=== PATIENT | female | born 2000 | race African-American/Black ===

== ENCOUNTER 2021-05-06 15:19 | Emergency (ER) | payer OTHER, SELFPAY ==
[2021-05-06 15:23] VITALS: BP 109/65; PULSE 70; RESP 16; TEMP 36.7; O2SAT 100
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
[2021-05-06 16:50] LABS: Add Manual Diff / Slide Review NO; Basophils Absolute Auto 0 /uL (0-100); Basophils Percent Auto 0.5 % (0-2); Eosinophils Absolute Auto 0 /uL (0-450); Eosinophils Percent Auto 0.4 % (2-4); Hematocrit 42.4 % (36-46); Hemoglobin 14.1 g/dL (12.0-16.0); Lymphocytes Absolute Auto 2100 /uL (1100-4500); Lymphocytes Percent Auto 33.9 % (25-40); Mean Corpuscular HGB Conc 33.3 % (30-36); Mean Corpuscular Hemoglobin 29.5 PG (26-34); Mean Corpuscular Volume 88.4 fL (80-100); Monocytes Absolute Auto 400 /uL (0-900); Neutrophils Absolute Auto 3700 /uL (1500-7000); Neutrophils Percent Auto 58.2 % (50-75); Platelet Count 208 X10^3/uL (150-400); Red Cell Distribution Width 12.8 % (11.6-14.8); White Blood Cell Count 6.3 X10^3/uL (4.5-11.0)
[2021-05-06 16:57] LABS: Amorphous Sediment Urine 1+; Bacteria Urine None Seen; Culture Indicated Urine Cult Not Indicated; Mucus Urine 1+ (Negative); RBC Urine None Seen (0-5/HPF); Squamous Epithelial Cell Urine 1-5 /HPF (0-5/HPF); UR Morphine/Opiate cutoff 300 Negative (Negative); Ur Creatinine Normal (Normal); Ur Specific Gravity Normal (Normal); Urine Amphetamines Negative (Negative); Urine Barbiturates Negative (Negative); Urine Benzodiazepines Negative (Negative); Urine Cocaine Negative (Negative); Urine MDMA Negative (Negative); Urine Methadone Negative (Negative); Urine Methamphetamines Negative (Negative); Urine Oxycodone Negative (Negative); Urine Phencyclidine Negative (Negative); Urine Tetrahydrocannabinol Negative (Negative); Urine Tricyclic Antidepressant Negative (Negative); Urine pH Normal (Normal); WBC Urine 1-5/HPF (0-5/HPF)
--- NOTE | 2021-05-06 17:02 | PC.NURSE ---
pt states she has moments, mostly at work, where she feels disrespected by a coworker and this causes her to be triggered. she then has a loud outburst of anger and immediately feels ashamed of her reaction afterwards. this has slowly built up over time and as she feels more and more ashamed she has been feeling more and more depressed. since an outburst in December, she has had thoughts of dying. no clear plan. she does not like feeling this way and would like to get help.
[2021-05-06 17:03] LABS: Acetaminophen < 10 ug/mL (10-30); Alanine Aminotransferase 13 IU/L (<35); Albumin 4.9 g/dL (3.5-5.0); Albumin Globulin Ratio 1.5 (1.0-2.8); Alkaline Phosphatase 77 U/L (38-126); Aspartate Aminotransferase 26 IU/L (14-36); BUN Creatinine Ratio 12.3 (6-22); Bilirubin Total 1.4 mg/dL (0.2-1.3); Blood Urea Nitrogen 8 mg/dL (7-17); Calcium 9.4 mg/dL (8.4-10.2); Carbon Dioxide 28 mmol/L (22-32); Chloride 101 mmol/L (98-107); Estimated Glomerular Filt Rate > 60.0 mL/min (>60); Ethanol (ETOH) < 10 mg/dL; Globulin 3.3 g/dL (1.7-4.1); Glucose 76 mg/dL (70-100); HEMOLYSIS < 15 (0-50); Potassium 3.6 mmol/L (3.4-5.1); Salicylate < 1.0 mg/dL (<20); Sodium 138 mmol/L (137-145); Total Protein 8.2 g/dL (6.3-8.2)
[2021-05-06 17:19] LABS: Free T4, Direct Thyroxine 1.12 ng/dL (0.78-2.19)
--- NOTE | 2021-05-06 17:54 | PC.NURSE ---
Pt moved to room 13 for high visibility. Pt contracted for safety.
[2021-05-06 17:55] LABS: COVID19 -Nasal RAPID Negative (Negative)
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
[2021-05-06 21:47] VITALS: BP 120/67; PULSE 60; O2SAT 100
--- NOTE | 2021-05-06 22:32 | PC.NURSE ---
pt sleeping in bed, no distress rousable to voice pt calm and cooperative
--- NOTE | 2021-05-07 00:48 | PC.NURSE ---
pt continues to rest/sleep rousable by voice NAD, no needs at this time
[2021-05-07 06:28] VITALS: BP 106/53; PULSE 72; RESP 16; TEMP 36.7; O2SAT 100
[2021-05-07 08:02] VITALS: BP 114/71; PULSE 87; RESP 20; TEMP 36.9; O2SAT 100
== END 2021-05-07 08:19 ==
PROVIDERS: Emergency Medicine; Emergency Provider Emergency Medicine
DX: R45.4 Irritability and anger (principal); Z20.822 Contact with and (suspected) exposure to COVID-19
CPT/HCPCS: 36415; 80053; 80305; 80320; 80329; 81003; 81015; 81025; 84439; 84443; 85025; 87635; 99283; 99284; C9803; G0480